=== PATIENT | male | born 2000 | race Hispanic/Latino ===

== ENCOUNTER 2023-08-08 02:34 | Emergency (ER) | payer OTHER, MEDICAID, SELFPAY ==
[2023-08-08] VITALS (19 sets, daily range): BP systolic 130–141; BP diastolic 64–76; PULSE 73–81; RESP 15–20; TEMP 35.7; O2SAT 95–98; BMI 29.2
--- NOTE | 2023-08-08 02:43 | DI.RAD.S_ITS ---
PROCEDURE: XR SHOULDER LT MIN 2V INDICATIONS: states dislocated shoulder with pain and deformity TECHNIQUE: To views of the shoulder were acquired. COMPARISON: [facility], CR, XR SHOULDER 2+ VIEWS BILATERAL, 09/28/2022, 16:42. [facility], CR, XR CHEST 1 VIEW, 01/23/2023, 8:09. FINDINGS: Bones: No fractures identified. Anterior dislocation of the left glenohumeral joint. No suspicious bony lesions. Visualized ribs appear intact. Soft tissues: No suspicious soft tissue calcifications. IMPRESSION: Anterior dislocation of the left glenohumeral joint. This report is concordant with the overnight preliminary interpretation. Dictated by: Zachariah Cerrato M.D. on 08/08/2023 at 7:51 Approved by: Zachariah Cerrato M.D. on 08/08/2023 at 7:52
--- NOTE | 2023-08-08 02:57 | ED_ITS ---
HPI - General Adult General Chief complaint: Extremity Injury, Upper Stated complaint: left shoulder dislocastion Time Seen by Provider: 08/08/23 02:46 Source: EMS Mode of arrival: EMS Limitations: no limitations History of Present Illness HPI narrative: This is a 22-year-old male with history of seizure disorder on Keppra, Lamictal and vitamin B6 patient states last seizure was 7 months ago. 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 He states tonight he was in bed twisted his arm and felt his shoulder dislocate. He is pain in the shoulder denies any other injuries. States he was awake when it occurred. Denies any recent seizure activity denies any other current issues. States he has been taking his medications regularly. He has had procedural sedation in the past he states he is tolerated them well. He states he did not have seizures after sedation 1 time but states he had already had seizures before the procedural sedation as well. He states that day he had also not taken his medication. Patient states no known drug allergies. No tobacco, alcohol or recreational drugs. Related Data Allergies Allergy/AdvReac Type Severity Reaction Status Date / Time No Known Drug Allergies Allergy Verified 05/03/18 08:28 Review of Systems Review of Systems ROS Unobtainable: All systems reviewed & are unremarkable except as noted in HPI and below Patient History Medical History Decreased visual acuity Seizure disorder Social History Smoking Status: Never smoker Smoking Status: Never smoker Exam Narrative Exam Narrative: GENERAL: Alert and oriented x three, male in mild distress. HEENT: Head normocephalic, atraumatic, EOMI, pupils reactive, face symmetric, moist mucous membranes NECK: Supple, full range of motion CARDIOVASCULAR: Regular rate and rhythm without murmurs, rubs or gallops. RESPIRATORY: Breath sounds equal bilaterally, no wheezes rales or rhonchi. ABDOMEN: Soft, nontender. Normoactive bowel sounds all 4 quadrants. 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 Neurovascularly intact NEUROLOGICAL: Cranial nerves II through XII grossly intact. Moving all extremities SKIN: Warm, dry, no petechiae, no rashes or lesions. Initial Vital Signs Initial Vital Signs: Vital Signs Temperature 96.3 F L 08/08/23 02:47 Pulse Rate 81 08/08/23 02:47 Respiratory Rate 15 08/08/23 02:47 Blood Pressure 139/73 08/08/23 02:47 Pulse Oximetry 97 08/08/23 02:47 Oxygen Delivery Method Room Air 08/08/23 02:47 Procedures Orthopedic Joint Reduction Joint #1: Time Out Performed: Yes Side: left Joint Reduction Location: shoulder Analgesia: procedural sedation Shoulder Technique Used (if applicable): traction/counter-traction and external rotation Post-reduction neuro exam: intact and no change Post-reduction vascular: intact and no change Post Reduction X-Ray Obtained: Yes Post Reduction X-Ray Results: reduced Splint Applied: Yes (sling) Patient Tolerated Procedure: Well and No complications Procedural Sedation Consent signed: Yes Time out performed: Yes Indication: fracture/dislocation reduction ASA Class: II Mallampati Airway Classification: Class II Time of Last PO Intake: 19:30 Preparation: color television console monitor applied, pulse oximeter, capnometry used, supplemental O2 applied, suction/airway equipment at bedside and IV secured IV Propofol dose (mg): 100 ED Sedation Level: Moderate (Concious) Patient Tolerated Procedure: Well and No complications Complications: none Course Orders Ordered: ED Orders 08/08/23 02:43 XR shoulder LT min 2V Stat 08/08/23 03:17 XR shoulder LT min 2V Stat Discontinued Medications Propofol (Propofol 200 Mg/20 Ml Vial) 95 mg 1 mg/kg (95 mg) IV NOW ONE Stop: 08/08/23 03:00 Last Admin: 08/08/23 03:39 Dose: Not Given Documented By: DIPAK Propofol (Propofol 200 Mg/20 Ml Vial) 100 mg IV NOW ONE Stop: 08/08/23 03:39 Last Admin: 08/08/23 03:21 Dose: 100 mg Documented By: DIPAK Vital Signs Vital signs: Vital Signs - 8 hr 08/08/23 02:47 08/08/23 03:15 08/08/23 03:15 Temperature 96.3 F L Pulse Rate 81 78 Respiratory Rate 15 Blood Pressure 139/73 141/73 H Pulse Oximetry 97 97 Oxygen Delivery Method Room Air 08/08/23 03:20 08/08/23 03:20 08/08/23 03:25 Temperature Pulse Rate 78 Respiratory Rate Blood Pressure 136/71 136/69 Pulse Oximetry 96 Oxygen Delivery Method Room Air 08/08/23 03:25 08/08/23 03:30 08/08/23 03:32 Temperature Pulse Rate 80 79 Respiratory Rate Blood Pressure 136/64 Pulse Oximetry 95 96 Oxygen Delivery Method Room Air Room Air 08/08/23 03:32 08/08/23 03:35 08/08/23 03:35 Temperature Pulse Rate 78 73 Respiratory Rate Blood Pressure 139/70 Pulse Oximetry 96 96 Oxygen Delivery Method Room Air Room Air 08/08/23 03:39 08/08/23 03:40 08/08/23 03:40 Temperature Pulse Rate 75 74 Respiratory Rate Blood Pressure 134/75 Pulse Oximetry 97 96 Oxygen Delivery Method Room Air 08/08/23 03:45 08/08/23 03:45 08/08/23 03:50 Temperature Pulse Rate 73 76 Respiratory Rate Blood Pressure 135/73 Pulse Oximetry 97 98 Oxygen Delivery Method Room Air Blow By 08/08/23 03:50 08/08/23 03:55 08/08/23 03:55 Temperature Pulse Rate 75 Respiratory Rate Blood Pressure 137/75 133/76 Pulse Oximetry 97 Oxygen Delivery Method 08/08/23 04:00 08/08/23 04:00 08/08/23 04:05 Temperature Pulse Rate 79 78 Respiratory Rate Blood Pressure 132/72 Pulse Oximetry 97 96 Oxygen Delivery Method 08/08/23 04:05 08/08/23 04:06 08/08/23 04:10 Temperature Pulse Rate 81 78 Respiratory Rate 20 Blood Pressure 132/75 Pulse Oximetry 96 Oxygen Delivery Method 08/08/23 04:10 08/08/23 04:15 08/08/23 04:15 Temperature Pulse Rate 81 Respiratory Rate Blood Pressure 133/72 133/71 Pulse Oximetry 96 Oxygen Delivery Method 08/08/23 04:20 08/08/23 04:20 08/08/23 04:25 Temperature Pulse Rate 77 Respiratory Rate Blood Pressure 130/73 133/75 Pulse Oximetry 98 Oxygen Delivery Method 08/08/23 04:25 Temperature Pulse Rate 75 Respiratory Rate Blood Pressure Pulse Oximetry 97 Oxygen Delivery Method Medical Decision Making Imaging Data Extremity x-ray #1: Radiologist's Impression: glenohumeral dislocation suggesting probable anterior inferior dislocation. Extremity x-ray #2: Radiologist's Impression: Glenohumeral dislocation has been reduced no fracture identified AC alignment remains unremarkable. MDM Narrative Medical decision making narrative: 22-year-old with recurrent history of shoulder dislocations bilaterally presents this evening with left shoulder dislocation after turning his arm in bed. Patient states he has had procedural sedation past. Does have a history significant for seizure disorder. X-ray does show shoulder dislocation, patient had procedural sedation appears to be reduced on repeat. Patient tolerated procedure well. His brother is here with him. Patient appeared to be back to baseline and was discharged home with family whom he lives with. Patient follows with Orthopedic surgery at [facility], he has been going to PT for his shoulder in particular continuing to follow up with the regularly. Discharge Plan Departure Patient Disposition: Home Clinical Impression: Dislocation, shoulder closed Qualifiers: Encounter type: initial encounter Laterality: left Qualified Code(s): S43.005A - Unspecified dislocation of left shoulder joint, initial encounter Instructions: DI for Shoulder Dislocation Activity Restrictions/Additional Instructions: Follow up with your orthopedic surgery team. Please call to set up an a ppointment. Continue with recommendations with your PT, continue to wear your sling as directed by your orthopedic team. You can take Tylenol up to a 1000 mg every 6 hours and/or ibuprofen up to 600 mg every 6 hours needed for pain. Please return for recurrent symptoms, new numbness, tingling or weakness or other new or concerning changes. Referrals: Oliverio Davis MD [Primary Care Provider] - Stand Alone Forms: Patient Portal/API
--- NOTE | 2023-08-08 03:17 | DI.RAD.S_ITS ---
PROCEDURE: XR SHOULDER LT MIN 2V INDICATIONS: post reduction left shoulder TECHNIQUE: 2 views of the shoulder were acquired. COMPARISON: [facility], CR, XR SHOULDER LT MIN 2V, 08/08/2023, 2:43. FINDINGS: Bones: Relocation of the left glenohumeral joint. No fractures identified. No suspicious bony lesions. Visualized ribs appear intact. Soft tissues: No suspicious soft tissue calcifications. IMPRESSION: Left glenohumeral joint is reduced. This report is concordant with the overnight preliminary interpretation. Dictated by: Zachariah Cerrato M.D. on 08/08/2023 at 7:52 Approved by: Zachariah Cerrato M.D. on 08/08/2023 at 7:53
[2023-08-08] MEDS: propofoL 200 MG/20 ML VIAL 100 MG IV (03:21)
== END 2023-08-08 04:45 | disposition home or self-care (01) ==
PROVIDERS: Emergency Provider Emergency Medicine; PCP Pediatrics
DX: S43.005A Unspecified dislocation of left shoulder joint, initial encounter (principal); X58.XXXA Exposure to other specified factors, initial encounter
CPT/HCPCS: 23650; 73030; 99152; 99283; 99284; J2704